=== PATIENT | male | born 1930 | race Caucasian/White ===

== ENCOUNTER → 2020-02-25 | Outpatient (CLI) | payer MEDICARE ==
[~2020-02-25] MED LIST: ALLO300T PO; HYDR12.58 PO; MECO10005 PO; MELO7.5T29 PO; METO-247 PO; MULT1TAB6 PO; SIMV80TA17 PO; VIT1CAPS12 PO
--- NOTE | 2020-02-25 10:21 | EKG ---
[facility] [address] [place] [address] Test Date: 2020-02-25 Test Time: 10:18:28 Pat Name: MIGUEL SANTOS Department: Room: Gender: M Business Consult: LUPIS Mistry : 1930 Requested By: GENESIS CONTRERAS Order Number: [id number] Reading MD: Denis Klein MD Measurements Intervals Amelia Rate: 65 P: 31 IL: 222 QRS: 9 QRSD: 96 T: 24 QT: 386 QTc: 406 Interpretive Statements SINUS RHYTHM 1st degree avb Electronically Signed On 03-01-2020 8:21:42 CHIEF NURSE EXECUTIVE by Denis Klein MD
--- NOTE | 2020-02-25 11:19 | RAD ---
EXAM: Chest, 2 views. HISTORY: Knee surgery. COMPARISON: None. FINDINGS: 2 views of the chest are obtained. There is elevation of the right hemidiaphragm. There is no infiltrate, pleural effusion or pneumothorax. The heart is normal in size. IMPRESSION: Elevation of the right diaphragm. Electronically signed by: Luly Connor MD (02/25/2020 11:17 AM) [id number]
== END ==
LOC: SURGPAT 09:18
PROVIDERS: ATTEND Orthopaedic Surgery
DX: Z01.818 Encounter for other preprocedural examination (principal); M17.11 Unilateral primary osteoarthritis, right knee
CPT/HCPCS: 71046; 93005

== ENCOUNTER → 2020-03-05 | Outpatient (CLI) | payer MEDICARE | LOC: LAB 09:49 | PROVIDERS: ATTEND Orthopaedic Surgery | DX: Z01.812 Encounter for preprocedural laboratory examination (principal); Z20.828 Contact with and (suspected) exposure to other viral communicable diseases | CPT/HCPCS: U0003 ==

== ENCOUNTER 2020-03-09 06:09 | Inpatient (IN) | payer MEDICARE ==
--- NOTE | 2020-03-07 13:05 | PDOC1 ---
History and Physical Date of Admission Date of Admission 03/09/2020 Identification/Chief Complaint Chief Complaint Right knee osteoarthritis pain and instability Source Source: Chart review, Patient History of Present Illness History of Present Illness 89-year-old man with right knee pain due to osteoarthritis, here for right knee arthroplasty. He lives alone in his own home ( in 2005) and drives his new Jeep [place]. Daughter lives in [place] with her who is retired and available to help. History of left total knee arthroplasty with Dr. Rogers in 2012. PMHX of degenerative lumbar spine disease for which he is wearing a brace. Of note, he is somewhat hard of hearing. Former smoker. 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 Denies any known metal or nickel allergy. Currently, he describes severe lateral right knee pain that will occasionally give out and make him fall. He is noticing his increased valgus deformity, and overall, is most concerned about his knee giving out and falling that prevents him from attending [employer]. He has been taking Meloxicam and has undergone several cortisone injections, which have lasted about a month. Meloxicam helps his back pain but doesn't address his knee f unction. He previously took NSAID's although his PCP took him off these due to kidney function. Patient doesn't want to use assistive devices. Past Medical History Cardiovascular: HTN, Hyperlipidemia Past Surgical History Past Surgical History: Total knee replacement Social History Smoke: No ALCOHOL: none Current Medications Current Medications Current Medications Ondansetron HCl (Zofran) 4 mg PRN Q6HRS PRN IV NAUSEA/VOMITING; Start 03/09/20 at 07:00; Stop 03/10/20 at 06:59 Fentanyl Citrate (Fentanyl 2ml Vial) 25 mcg PRN Q5MIN PRN IV MILD PAIN 1-3; Start 03/09/20 at 07:00; Stop 03/10/20 at 06:59 Fentanyl Citrate (Fentanyl 2ml Vial) 50 mcg PRN Q5MIN PRN IV MODERATE TO SEVERE PAIN; Start 03/09/20 at 07:00; Stop 03/10/20 at 06:59 Morphine Sulfate (Morphine Sulfate) 1 mg PRN Q10MIN PRN IV SEVERE PAIN 7-10; Start 03/09/20 at 07:00; Stop 03/10/20 at 06:59 Ringer's Solution 1,000 ml @ 30 mls/hr Q24H IV ; Start 03/09/20 at 07:00; Stop 03/09/20 at 18:59 Lidocaine HCl (Xylocaine-Mpf 1% 2ml Vial) 2 ml PRN 1X PRN ID PRIOR TO IV START; Start 03/09/20 at 07:00; Stop 03/10/20 at 06:59 Hydromorphone HCl (Dilaudid) 0.5 mg PRN Q10MIN PRN IV SEV PAIN, Second choice; Start 03/09/20 at 07:00; Stop 03/10/20 at 06:59 Prochlorperazine Edisylate (Compazine) 5 mg PACU PRN PRN IV NAUSEA, MRX1; Start 03/09/20 at 07:00; Stop 03/10/20 at 06:59 Active Scripts Active Reported Preservision Areds Softgel (Vit A/Vit C/Vit E/Zinc/Copper) 1 Each Capsule 1 Each PO DAILY Meloxicam 7.5 Mg Tablet 7.5 Mg PO DAILY Centrum Complete Multivit Tab (Multivitamin/Iron/Folic Acid) 1 Each Tablet 1 Each PO DAILY B12 Active (Mecobalamin) 1,000 Mcg Tab.chew 1,000 Mcg PO DAILY Hydrochlorothiazide Tablet (Hydrochlorothiazide) 12.5 Mg Tablet 25 Mg PO DAILY Allopurinol 300 Mg Tablet 300 Mg PO DAILY Metoprolol Succinate ( Xl ) (Metoprolol Succinate) 100 Mg Tab.er.24h 100 Mg PO DAILY Simvastatin 80 Mg Tablet 80 Mg PO HS Allergies Allergies: Coded Allergies: Sulfa (Sulfonamide Antibiotics) (Verified Allergy, Severe, RASH, 02/25/20) amoxicillin (Verified Allergy, Severe, PURITIS, 02/25/20) lisinopril (Verified Allergy, Severe, RASH, 02/25/20) Physical Exam General: Alert, Cooperative HEENT: Atraumatic Heart: RRR Abdomen: Soft Extremities: Other (The RIGHT knee shows a mildly antalgic gait. There is valgus alignment. No masses. No detectable effusion. Tenderness on the joint lines, more-so laterally. Range of motion is 2-115 degrees. There is crepitus with range of motion, and pain at the extremes of motion. The knee is stable to varus and valgus stress without subluxation or laxity. Muscle strength is slightly weak for the quadriceps 4+/5 which may be due to pain or avoidance, and does not seem neurogenic, and the muscle tone and bulk is slightly decreased. The hamstring strength is 5/5. The skin is normal with no scars, rashes, lesions or ulcers. Light touch sensation is intact. Minimal-mild edema and no varicosities. Dorsalis pedis pulse is intact and capillary refill is normal.) Skin: No breakdown, No significant lesion Neuro: Normal speech, Sensation intact Psych/Mental Status: Mental status NL, Mood NL Images Images PATIENT: MIGUEL SANTOS I ACCOUNT: [id number] : 1930 LOCATION: [facility] AGE: 89 SEX: M EXAM STATUS: PRE CLI ORD. PHYSICIAN: GENESIS CONTRERAS MD REASON: RT KNEE PAIN PROCEDURE: KNEE STANDING BILAT AP EXAM: Bilateral knees, standing view; right knee, 2 views. HISTORY: Pain. COMPARISON: None. FINDINGS: A frontal standing view both knees and lateral and sunrise views of the right knee are obtained. There is a left knee arthroplasty in expected position. There is severe lateral compartment joint space narrowing, subchondral sclerosis, subchondral cyst formation and spurring involving the right knee. There is associated lateral compartment bony remodeling and genu valgus. There is also mild patellofemoral compartment spurring. There is no joint effusion. There are vascular calcifications. IMPRESSION: 1. Severe lateral and mild medial compartment osteoarthritis of the right knee with associated lateral compartment bony remodeling and genu valgus. 2. Left knee arthroplasty in expected position. Electronically signed by: Luly Morrison MD (12/19/2019 9:18 AM) [id number] DICTATED and SIGNED BY: LULY MORRISON MD DATE: 12/19/19 0918 VTE Prophylaxis Ordered VTE Prophylaxis Devices: Yes VTE Pharmacological Prophylaxi: Yes Assessment/Plan Assessment/Plan He has severe osteoarthritis his right knee. We reviewed his x-rays together and discussed the natural history of the condition as well as the risks, benefits, and alternatives to treatment. Given his failure of nonoperative measures, instability, and marked valgus deformity, my recommendation is surgery. Plan for right total knee arthroplasty. We discussed the potential risks of infection, neurovascular injury, fracture, bleeding, blood clots, malalignment, need for revision surgery, or other potential surgical or anesthetic complications. Specifically, we discussed the risks associated with his older age and I highlighted that he's relatively healthy and I don't see any compelling reason to withhold from joint replacement. I recommended the robotic NAVIO instrumentation and we discussed my reasoning. We also discussed postoperative treatment and expectations including dental antibiotic prophylaxis and residual numbness over the knee. All of his questions were answered and he desires to proceed with total knee replacement. [facility] with robotic assist. Justifications for Admission Other Justification GENESIS CONTRERAS MD Mar 07, 2020 13:05
[~2020-03-09] VITALS: Ht 167.6 cm; Wt 89.8 kg
[2020-03-09] VITALS (10 sets, daily range): BP systolic 105–126; BP diastolic 67–79
[~2020-03-09 06:09] MED LIST changes: +CLINDAMYCIN 900MG PREMIX 50 ML IV PRN; +MORPHINE SULFATE 5 MG, KETOROLAC 30MG VIAL 30 MG, ROPIVacaine 0.5% PF 60 ML, EPINEPHrin... INT ART ONE; +TRANEXAMIC ACID 1,000 MG in IV NORMAL SALINE 50ML 50 ML INJ ONE
[2020-03-09] MEDS ORDERED: DEXAMETHASONE SOD PHOS 4 MG/ML VIAL ONE (06:39)
[2020-03-09] MEDS ORDERED: LIDOCAINE 2% PF 5 ML VIAL. ONE (06:39)
[2020-03-09] MEDS ORDERED: PROPOFOL 10 MG/ML (20ML) VIAL. IV ONE (06:39)
[2020-03-09] MEDS ORDERED: ONDANSETRON PF 4 MG/2 ML VIAL. ONE (06:39)
[2020-03-09] MEDS ORDERED: SEVOFLURANE > 120 MINUTES. IH ONE ×2 (06:39→08:17)
[2020-03-09] MEDS ORDERED: PHENYLEPHRINE in 0.9% NACL PF 1 MG/10 ML SYRINGE. IV ONE ×2 (06:40→09:06)
[2020-03-09] MEDS ORDERED: VANCOMYCIN 1 GM VIAL. ONE ×2 (06:51→07:22)
[2020-03-09] MEDS ORDERED: BUPIVACAINE MPF 0.25% 30 ML VIAL. ONE (06:51)
[2020-03-09] MEDS ORDERED: methylPREDNISolone ACETATE 80 MG/ML VIAL. ONE (06:52)
[2020-03-09] MEDS ORDERED: TOBRAMYCIN POWDER 1.2 GM VIAL. ONE (06:52)
[2020-03-09] MEDS ORDERED: IV RINGERS,LACTATED 1000ML 1,000 ML IV SCH (07:00)
[2020-03-09] MEDS ORDERED: fentaNYL PF VIAL 100 MCG/2 ML VIAL IV PRN ×2 (07:00)
[2020-03-09] MEDS ORDERED: ACETAMINOPHEN 500 MG TABLET PO ONE (07:00)
[2020-03-09] MEDS ORDERED: ONDANSETRON PF 4 MG/2 ML VIAL. IV PRN (07:00)
[2020-03-09] MEDS ORDERED: PROCHLORPERAZINE 10 MG/2 ML VIAL. IV PRN (07:00)
[2020-03-09] MEDS ORDERED: LIDOCAINE 1% PF 2 ML VIAL. ID PRN (07:00)
[2020-03-09] MEDS ORDERED: HYDROmorphone 2 MG/ML VIAL IV PRN (07:00)
[2020-03-09] MEDS ORDERED: fentaNYL PF VIAL 100 MCG/2 ML VIAL ONE ×2 (07:46→08:23)
[2020-03-09] MEDS ORDERED: TRANEXAMIC ACID 1,000 MG in IV NORMAL SALINE 50ML 50 ML INJ ONE (08:00)
--- NOTE | 2020-03-09 09:52 | PDOC4 ---
Operative Note Operative Note Date of Procedure: March 09, 2020 Pre-Op Diagnosis: Unilateral primary osteoarthritis, right knee. M17.11 Post-Op Diagnosis: same Procedure: right total knee arthroplasty with patella resurfacing, robotic assisted, CPT 78848 Surgeon: Genesis Medeiros MD Science Technicians: AAS Tobias Anesthesia: General EBL: 100 mL Specimens Obtained: right knee bone and soft tissue Complications: none Drains: Hemovac plus pain catheter Tourniquet time: 58 Minutes Tourniquet Pressure: 300 mm Hg Indications for Procedure: Knee arthritis pain, affecting quality of life, unrelieved by nonoperative management Findings: Severe osteoarthritis with bone on bone contact laterally, with full thickness cartilage loss medially and at the patellofemoral joint Implants: Booker & Nephew Journey II Total Knee System, Size 7 right bicruciate stabilized Journey II BCS cobalt chrome femoral component, size 6 right Journey nonporous tibial baseplate, size 5-6 13 mm right Journey II BCS XLPE articular insert, 32 mm oval Mia II resurfacing patellar component Procedure in Detail: The patient was identified in the preoperative holding area, and the correct right lower extremity was marked by me. The patient was taken to the operating room where the patient was anesthetized by the Department of Anesthesia. Preoperative antibiotics were given intravenously. Tranexamic acid 1 g was given intravenously for intraoperative hemostasis. A "time-out" procedure was performed. The patient was positioned supine on the operative table with a tourniquet on the upper right thigh. A right hip bump and heel bump were attached to the operating table for later intraoperative positioning. The right lower limb was thoroughly scrubbed, then sterile Chloraprep solution was applied, and the limb was draped in sterile fashion. The operating team wore exhaust ventilated hoods with [employer] Personal Protection Toga Zippered Peel-Away protection system. An impervious stockinet and an adhesive drape were used such that the skin was entirely covered. The limb was exsanguinated with an Esmarch bandage, and the tourniquet was inflated. A midline skin incision was made with a scalpel using the patella and tibial tubercle as landmarks. Electrocautery was used for hemostasis. My graduate research assistant used rake retractors and a laparotomy sponge. A medial parapatellar arthrotomy incision was used with extension into the distal quadriceps tendon. The patella was retracted laterally and Hohmann retractors were now used by my graduate research assistant. Excess synovium, the menisci, and the cruciate ligaments were resected sharply. A periarticular multimodal ropivacaine anesthetic injection was used in the suprapatellar pouch and distal quadriceps muscle. The patella was everted and exposed. The patella thickness was measured with a caliper, and then cut freehand with a saw, using caliper measurements to assess the resection. The lateral retinaculum was partially released from the lateral patella using electrocautery. Rongeurs were used to make sure there were no remaining exposed patellar osteophytes medially or laterally. The patella was sized, and then drilled for an oval three-peg patella component. The tibial tracker array for the NAVIO system was applied to the tibial crest four finger breadths below the tibial tubercle, using percutaneous incisions and bicortical pins. The femoral tracker array was applied outside of the original incision using two separate stab incisions using bicortical pins. Checkpoint verification pins were applied to the femur and tibia. Using the point probe, the medial and lateral malleoli were localized and the locations were stored. The center of the tibia was noted at the anterior cruciate ligament insertion and stored. The center of the femur was marked at the intersection of [place] line with the transepicondylar axis. The hip center calculation was performed with range of motion of the hip. The femur neutral position was identified, and simulated weightbearing was performed with axial compression on the foot. Range of motion without stress was performed and the data collected. Range of motion with valgus stress, and range of motion with varus stress data collection was also performed. Rotational references include the [place] line, and the trans-epicondylar axis. The femoral articular surface was now mapped in 3 dimensions using the point probe and digital data collected. The tibial condyle articular surfaces and cortical edges were mapped in 3 dimensions using the point probe including the medial and lateral tibial plateau. Implant planning was now performed on-screen with manipulation of the implant sizes, cut thicknesses and gaps, component rotation, component flexion/extension and component varus/valgus until satisfactory ligament balance, alignment and stability of the knee was expected throughout the range of motion. A lateral tibiofemoral release was performed with a piecrust technique using an 11 blade scalpel in the lateral soft tissues including the IT band. My graduate research assistant held a Hohmann retractor, a medial Z-retractor, and an [place] retractor to protect the medial and lateral collateral ligaments, the patellar tendon, the skin and the other soft tissues. The point probe was used to confirm the location of the checkpoint verification pins. The distal femoral surface was now prepared using the Anspach bisi with footpedal, and the NAVIO handpiece for bone removal to the previously planned distal femoral resection. The crosshairs at the pin locations were marked by using a mallet and the point probe for definitive location. A 5-in-1 Journey II cutting guide was then applied and the position was checked with the virtual snow wing from the NAVIO to ensure proper placement as the pins were applied. The posterior, anterior, and all chamfer cuts were made with the oscillating saw. Excess bone was removed with an osteotome and rongeurs. The tibial cutting guide was applied, positioned using the NAVIO virtual snow wing, and secured to the upper tibia using three pins at the previously planned location. The virtual snow wing was used to confirm the resection depth, slope and coronal alignment. The upper tibia was cut made with an oscillating saw. My graduate research assistant held Hohmann retractors and a posterior cruciate ligament retractor to protect the medial and lateral collateral ligaments, the patellar tendon, the skin, the peroneal nerve and the other soft tissues. The upper tibia was sized with a trial baseplate. The posterior compartment was cleared of osteophytes and loose bodies. The periarticular anesthetic injection was used in the posterior compartment. The box cut for a posterior stabilized component was made. A preliminary reduction was performed with a trial femur, trial tibial baseplate and trial polyethylene. The NAVIO system was used to confirm range of motion, and postoperative stressed gap assessment. The stability was assessed using different thicknesses of tibial articular surface to find satisfactory stability and good range of motion. The rotation of the tibial component was marked on the upper tibia. Final trial reduction was now performed verifying patella tracking and tibiofemoral stability and alignment. The bone pins and tracker arrays were removed, and the checkpoint verification pins were removed. The tibia preparation was completed with a drill, saw, and fin punch at the previously noted rotation. The final implants were verified and opened. Outer gloves were changed by the operating team. Betadine lavage was used. The bone cuts were irrigated with saline using the Judith InterPulse device and then dried with suction and laparotomy sponges. Two packages of Booker + Nephew Rally HV bone cement were mixed in powdered form with Vancomycin 1gm and Tobramycin 1.2 gm, and then vacuum-mixed with the monomer, and placed into a cement gun. The cut surfaces of the bone were thoroughly dried with suction and with laparotomy sponges for cement interdigitation. The final components were cemented into place. The knee was kept at full extension while the cement hardened, and excess cement was removed. Tranexamic acid 1 g was redosed intravenously for additional intraoperative hemostasis. The tourniquet was released, and electrocautery was used for hemostasis. A final periarticular anesthetic injection was used for pain relief. The bone pin sites on the tibial crest were closed with #3-0 Nylon sutures. A final check of [id number] and stability was made, and the polyethylene implant final size was chosen. The polyethylene implant was secured to the tibial baseplate, and the knee was reduced a final time and range of motion and stability was confirmed. Thorough irrigation was used. A pain catheter, and a 10 Fr Hemovac were inserted. Topical Vancomycin 1 gm was used during the closure. The arthrotomy was closed with interrupted [id number] #1 Vicryl suture. The subcutaneous tissues were approximated initially with #2-0 Vicryl inverted interrupted sutures by my graduate research assistant. Next the subcuticular layer was ap proximated in a running fashion with #3-0 STRATAFIX suture by my graduate research assistant. The skin incision was then covered and reinforced by my graduate research assistant with Acticoat, followed by a ANANDA single use negative pressure wound therapy dressing Soft roll and an Robert wrap were applied. Needle and sponge counts were correct. There were no apparent complications. The patient returned to the recovery room in stable condition. GENESIS MEDEIROS MD Mar 09, 2020 09:52
[2020-03-09] MEDS ORDERED: ZOLPIDEM 5 MG TABLET. PO PRN (10:00)
[2020-03-09] MEDS ORDERED: DEXTROSE 50% 25 GM / 50ML DISP.SYRIN. IV PRN (10:00)
[2020-03-09] MEDS ORDERED: 0.9 % SODIUM CHLORIDE 10 ML DISP.SYRIN. IV PRN (10:00)
[2020-03-09] MEDS ORDERED: fentaNYL PF VIAL 100 MCG/2 ML VIAL IVP PRN (10:00)
[2020-03-09] MEDS ORDERED: METOCLOPRAMIDE HCL 10 MG/2 ML VIAL. IVP PRN (10:00)
[2020-03-09] MEDS ORDERED: diphenhydrAMINE 50 MG/ML VIAL IVP PRN (10:00)
[2020-03-09] MEDS ORDERED: MORPHINE SULFATE 2 MG/ML VIAL. IVP PRN (10:00)
[2020-03-09] MEDS ORDERED: PROCHLORPERAZINE 5 MG TABLET. PO PRN (10:00)
[2020-03-09] MEDS: IV NORMAL SALINE 1000ML BAG 1,000 ML IV SCH ×2 (10:00→13:08)
[2020-03-09] MEDS: MORPHINE SULFATE 2 MG/ML VIAL. IV PRN ×2 (10:19→10:34)
[2020-03-09] MEDS ORDERED: oxyCODONE/APAP 5/325 1 TAB TABLET PO PRN (10:45)
--- NOTE | 2020-03-09 10:59 | RAD ---
EXAM: Right knee, 2 views. HISTORY: Arthroplasty. COMPARISON: None. FINDINGS: 2 views of the right knee are obtained. There is a right knee arthroplasty in expected posi tion. There is gas, joint fluid and a drain due to recent surgery. There are track torres within the d istal femur and proximal tibia due to prior instrumentation. IMPRESSION: Right knee arthroplasty in expected position. Electronically signed by: Luly Connor MD (03/09/2020 10:56 AM) [id number]
--- NOTE | 2020-03-09 11:30 | NUR ---
received from recovery. He is alert and oriented x4. He is QUINAULT and wears bilateral hearing aides and glasses. He is rating his pain around a "2". He states that it is a dull ache. He has good motion, sensation and pulses carmelo lower extremities. He has swelling 2 + in his bilateral ankles.
[2020-03-09] MEDS: ONDANSETRON PF 4 MG/2 ML VIAL. IVP SCH ×2 (12:00→18:00)
[2020-03-09] MEDS: METOPROLOL SUCC 24HR ER 100 MG TAB.ER.24H. PO SCH (12:00)
[2020-03-09] MEDS: hydroCHLOROthiazide 25 MG TABLET PO SCH (12:00)
[2020-03-09] MEDS: ALLOPURINOL 300 MG TABLET. PO SCH (12:00)
[2020-03-09] MEDS: CLINDAMYCIN 900MG PREMIX 50 ML IV SCH ×2 (13:08→18:25)
[2020-03-09] MEDS: CYANOCOBALAMIN (VITAMIN B-12) 1,000 MCG TABLET. PO SCH (13:13)
[2020-03-09] MEDS: ONDANSETRON ODT 4 MG TAB.RAPDIS. PO SCH ×2 (13:13→17:04)
[2020-03-09] MEDS: SENNOSIDES/DOCUSATE 8.6/50MG TABLET. PO SCH (13:13)
[2020-03-09] MEDS: oxyCODONE/APAP 5/325 1 TAB TABLET PO PRN (17:03)
[2020-03-09] MEDS: KETOROLAC 30MG VIAL 30 MG, BUPIVACAINE MPF 0.25% 20 ML, EPINEPHrine 0.5 MG in TOTAL VOL... INT ART SCH (18:24)
[2020-03-09] MEDS: ASPIRIN ENTERIC COATED 325 MG TABLET.DR. PO SCH (20:38)
[2020-03-09] MEDS: SIMVASTATIN 40 MG TABLET. PO SCH (20:38)
--- NOTE | 2020-03-09 22:11 | NUR ---
Patient accidently pulled out Hemovac drain. Dressing CDI, no bleeding noted. tubing intact. Paiten denies any pain or discomfort. Offered Patient pain pill and Patient refused. Patient assisted to restroom and voiding without difficulty. Offered to assist Patient to bed and Patient requested to sleep in chair. Call light in reach. Will monitor.
[2020-03-10] MEDS: CLINDAMYCIN 900MG PREMIX 50 ML IV SCH (01:12)
--- NOTE | 2020-03-10 01:15 | NUR ---
Patient assisted to restroom. Patient offered pain medication and refused. Instructed Patient on need to not let pain get out of control, encouraged him to take pain medication before pain gets bad. Patient verbalized understanding and stated "I won't." Will monitor and continue to offer pain medication. Call light in reach.
[2020-03-10] MEDS: oxyCODONE/APAP 5/325 1 TAB TABLET PO PRN ×4 (02:48→19:56)
[2020-03-10 03:00] VITALS: BP 91/53
[2020-03-10] MEDS ORDERED: MAGNESIUM HYDROXIDE 2,400 MG/30 ML ORAL.SUSP. PO PRN (06:00)
[2020-03-10] MEDS: KETOROLAC 30MG VIAL 30 MG, BUPIVACAINE MPF 0.25% 20 ML, EPINEPHrine 0.5 MG in TOTAL VOL... INT ART SCH (06:03)
[2020-03-10] MEDS: ONDANSETRON ODT 4 MG TAB.RAPDIS. PO SCH ×2 (06:08)
[2020-03-10] MEDS: ONDANSETRON PF 4 MG/2 ML VIAL. IVP SCH ×2 (06:08)
[2020-03-10 06:12] VITALS: BP 105/65
--- NOTE | 2020-03-10 06:24 | NUR ---
Unable to start IAC infusion as when assessing IA cap broke off and found in chair, no bleeding noted. Attempted to remove tubing and meet with resistance. Tubing tied in know and with have Tammy SANTAMARIA assist with removal of IAC at shift change report. Patient denies any C/O of pain.
--- NOTE | 2020-03-10 07:15 | NUR ---
Patient's IAC discontinued with assistance of Tammy SANTAMARIA. Opsite around Lelia removed, IAC discontinued, area cleansed with Chlor prep. Tolleson foam applied and IAC opsite replaced.
[2020-03-10] MEDS: ASPIRIN ENTERIC COATED 325 MG TABLET.DR. PO SCH ×2 (08:13→19:55)
[2020-03-10] MEDS: SENNOSIDES/DOCUSATE 8.6/50MG TABLET. PO SCH (08:13)
[2020-03-10] MEDS: MULTIVITAMIN with MINERAL TABLET. PO SCH (08:14)
[2020-03-10] MEDS: MELOXICAM 7.5 MG TABLET PO SCH (08:14)
[2020-03-10] MEDS: ALLOPURINOL 300 MG TABLET. PO SCH (08:14)
[2020-03-10] MEDS: CYANOCOBALAMIN (VITAMIN B-12) 1,000 MCG TABLET. PO SCH (08:16)
[2020-03-10] MEDS: METOPROLOL SUCC 24HR ER 100 MG TAB.ER.24H. PO SCH (09:00)
[2020-03-10] MEDS: hydroCHLOROthiazide 25 MG TABLET PO SCH (09:00)
--- NOTE | 2020-03-10 09:00 | NUR ---
Held this am blood pressure medication: metoprolol and hctz. BP 85/50 with heart rate 82. Encouraged pt to increase po fluids. Also encourage pt when getting up to do it slowly. Pt stated at one time at home, got up from the couch to quickly he passed out. Cont. monitor.
[2020-03-10 11:13] VITALS: BP 96/56
[2020-03-10] MEDS ORDERED: ONDANSETRON ODT 4 MG TAB.RAPDIS. PO PRN (12:00)
[2020-03-10] MEDS ORDERED: ONDANSETRON PF 4 MG/2 ML VIAL. IVP PRN (12:00)
--- NOTE | 2020-03-10 12:44 | PDOC ---
PROGRESS NOTES Date of Service DATE: 03/10/20 TIME: 12:40 Subjective Subjective Received po pain meds to control pain. Unfortunately the drain came out early overnight and now he has ecchymosis. Pain cath leaked... Hypotensive and BP meds held. Objective Vital Signs Vital Signs Date Time Temp Pulse Resp B/P (MAP) Pulse Ox O2 Delivery O2 Flow Rate FiO2 03/10/20 11:07 Room Air 03/10/20 06:12 97.8 81 18 105/65 (78) 95 97.8 03/09/20 22:42 2.0 Physical Exam ANANDA intact and dry. Pain catheter and Hemovac have been removed. Calf soft and NT. Good AROM of foot and toes. Intact sensation distally. No sign of compartment syndrome or DVT. No blisters, but extensive ecchymosis laterally corresponds with extensive lateral releases for valgus knee. Imaging Report reviewed, images independently reviewed. Satisfactory TKA without apparent complications. PATIENT: MIGUEL SANTOS I ACCOUNT: [id number] : 1930 LOCATION: [address] [place] [address] AGE: 89 SEX: M EXAM STATUS: ADM IN ORD. PHYSICIAN: GENESIS CONTRERAS MD REASON: PACU - POST OP PROCEDURE: KNEE RIGHT 2V EXAM: Right knee, 2 views. HISTORY: Arthroplasty. COMPARISON: None. FINDINGS: 2 views of the right knee are obtained. There is a right knee arthroplasty in expected position. There is gas, joint fluid and a drain due to recent surgery. There are track torres within the distal femur and proximal tibia due to prior instrumentation. IMPRESSION: Right knee arthroplasty in expected position. Electronically signed by: Luly Morrison MD (03/09/2020 10:56 AM) [id number] DICTATED and SIGNED BY: LULY MORRISON MD DATE: 03/09/20 [id number] 0 Assessment Assessment POD# 1 after TKA. Hypotension and BP meds held. Plan Plan of Care Continue PT. Not yet able to get out of bed without assistance. Need to watch incision for blisters. Watch BP and hopefully can restart metoprolol. Justicifation of Admission Dx: Justifications for Admission: Justification of Admission Dx: Yes Hypertension: Unstable Variant GENESIS CONTRERAS MD Mar 10, 2020 12:44
--- NOTE | 2020-03-10 13:00 | NUR ---
Noted on right lateral knee a large dark bruise where the drain site was and some swelling. Encourage pt to keep it elevated while at rest and iced. Dr. Medeiros aware of this. Cont. monitor.
[2020-03-10] MEDS: CALCIUM CARBONATE 500 MG TAB.CHEW PO PRN (13:06)
[2020-03-10] MEDS ORDERED: BISACODYL 10 MG SUPP.RECT. PR PRN (16:00)
[2020-03-10 18:09] VITALS: BP 112/69
[2020-03-10] MEDS: SIMVASTATIN 40 MG TABLET. PO SCH (19:55)
[2020-03-11] VITALS (7 sets, daily range): BP systolic 92–154; BP diastolic 52–87
--- NOTE | 2020-03-11 05:43 | NUR ---
Patient continues to rest in recliner, still needing moderate assistance at times to get out of recliner. Right leg elevated and ice applied for swelling. Patient seems to be painful upon ambulation,but refusing pain medication throughout night with exception of pain pill with HS medication. Call light remains in reach.
[2020-03-11] MEDS: oxyCODONE/APAP 5/325 1 TAB TABLET PO PRN ×2 (06:19→21:20)
[2020-03-11] MEDS: ASPIRIN ENTERIC COATED 325 MG TABLET.DR. PO SCH ×2 (07:53→21:17)
[2020-03-11] MEDS: MELOXICAM 7.5 MG TABLET PO SCH (07:53)
[2020-03-11] MEDS: CYANOCOBALAMIN (VITAMIN B-12) 1,000 MCG TABLET. PO SCH (07:53)
[2020-03-11] MEDS: SENNOSIDES/DOCUSATE 8.6/50MG TABLET. PO SCH (07:53)
[2020-03-11] MEDS: MULTIVITAMIN with MINERAL TABLET. PO SCH (07:53)
[2020-03-11] MEDS: METOPROLOL SUCC 24HR ER 100 MG TAB.ER.24H. PO SCH ×2 (07:57→11:25)
[2020-03-11 08:49] LABS: HEMATOCRIT 32.9 % (39.0-53.0); HEMOGLOBIN 10.8 g/dL (13.0-17.5)
[2020-03-11] MEDS: hydroCHLOROthiazide 25 MG TABLET PO SCH (09:00)
--- NOTE | 2020-03-11 09:02 | NUR ---
resting quietly in recliner. continues to complain of "hurting" right leg/knee is swollen-3+ ; has good pedal pulse and warm to touch. continue to hold Toprol xL will cont to reassess.
[2020-03-11] MEDS: CALCIUM CARBONATE 500 MG TAB.CHEW PO PRN (09:34)
[2020-03-11] MEDS: ALLOPURINOL 300 MG TABLET. PO SCH (09:34)
--- NOTE | 2020-03-11 12:00 | NUR ---
rests in recliner. continues to complain of feeling tired. blood pressure is up and hr is 130's. medicated with toprol xl . continues to refused pain medication att his time. complains of heart burn ; medicated with tums
--- NOTE | 2020-03-11 14:50 | NUR ---
returned from therapy. became light headed returned per recliner. rests in recliner. daughter at bedside. Addendum: 03/11/20 at 1453 by ISAI LAUREN RN blood pressure is 120/50 hr 119
--- NOTE | 2020-03-11 16:06 | NUR ---
continues to be nauseated/heartburn. was given prune juice then immediately has large amount of emesis approx 400cc. then had another episode of approx 200cc brown/black liquid. states heartburn is better. becomes soa and applied 02 on at 2lnc heart rate has been in the 120's. He was given his toprol xl today. iv fluids restarted to left hand with NS at 100 cchr. continue to monitor
--- NOTE | 2020-03-11 17:41 | EKG ---
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: : 1930 Requested By: SRAVANTHI GERARD Order Number: [id number] Reading MD: Measurements Intervals [place] Rate: 128 P: -39 [place]: 116 QRS: 173 QRSD: 86 T: 131 QT: 342 QTc: 503 Interpretive Statements SUPRAVENTRICULAR RHYTHM ABNORMAL RIGHT AXIS DEVIATION CONSIDER RIGHT VENTRICULAR HYPERTROPHY QRS(T) CONTOUR ABNORMALITY CONSISTENT WITH HIGH LATERAL INFARCT AGE UNDETERMINED CONSISTENT WITH INFERIOR INFARCT PROBABLY OLD ABNORMAL ECG RI6.02 Compared to ECG 02/25/2020 10:18:28 Supraventricular rhythm now present Right-axis deviation now present Myocardial infarct finding now present Sinus rhythm no longer present
--- NOTE | 2020-03-11 18:01 | PDOC ---
PROGRESS NOTES Date of Service DATE: 03/11/20 TIME: 17:48 Subjective Subjective Total knee arthroplasty was 2 days ago, on 03/09. He did well yesterday. He has not felt very well all day, but could not be more specific. He had not had a bowel movement since Monday and his symptoms were thought perhaps due to co nstipation. Took some prune juice. Then he threw up twice, 500 cc, then 200 cc. Then he did report some chest discomfort and an EKG was ordered. He is feeling slightly better now after throwing up, and denies shortness of breath. He does not have a employment attorney. He sees Dr. Faina Anders. He is on metoprolol routinely, although this was held yesterday due to low blood pressure postoperatively. I reviewed the EKG that was just done and compared to the preop EKG from 02/25/20. On 02/24 he had a first-degree AV block only conducting every other P wave with heart rate 66, but now he is conducting every P wave showing supraventricular tachycardia with heart rate 128 bpm. QRS looks different especially in leads I, III, but maybe that is lead placement. I will consult cardiology. Objective Vital Signs Vital Signs Date Time Temp Pulse Resp B/P (MAP) Pulse Ox O2 Delivery O2 Flow Rate FiO2 03/11/20 16:30 99.5 127 20 114/73 (87) 95 Nasal Cannula 2.0 99.5 Physical Exam He looks well. He still has bruising on the lateral knee but no blisters. Calf is soft and nontender. No sign of DVT. Labs Laboratory Tests Test 03/11/20 08:34 Hemoglobin 10.8 g/dL (13.0-17.5) Hematocrit 32.9 % (39.0-53.0) Mean Corpuscular Hemoglobin Concent 33 g/dL (31-37) Laboratory Tests Test 03/11/20 08:34 Hemoglobin 10.8 g/dL (13.0-17.5) Hematocrit 32.9 % (39.0-53.0) Mean Corpuscular Hemoglobin Concent 33 g/dL (31-37) Assessment Assessment POD# 2 after total knee arthroplasty. Supraventricular tachycardia. Emesis, nausea and vomiting, now on IV fluids. Constipation might be a part of his symptom complex. He did miss 1 or more doses of metoprolol due to hypotension and this might be contributing to the tachycardia. Plan Plan of Care I will have cardiology evaluate to see if he needs enzymes ordered or other work-up. Continue taking metoprolol now, and use IV fluids for blood pressure, and to keep him hydrated after emesis. Labs in am to include BMP and hemoglobin (or can get those sooner if cardiology wants to check other blood work.) Justicifation of Admission Dx: Justifications for Admission: Justification of Admission Dx: Yes Hypertension: Unstable Variant GENESIS CONTRERAS MD Mar 11, 2020 18:01
[2020-03-11] MEDS: IV NORMAL SALINE 1000ML BAG 1,000 ML IV SCH (19:15)
[2020-03-11] MEDS: SIMVASTATIN 40 MG TABLET. PO SCH (21:17)
[2020-03-12] MEDS: IV NORMAL SALINE 1000ML BAG 1,000 ML IV SCH (01:54)
[2020-03-12 03:00] VITALS: BP 101/60
[2020-03-12 06:00] VITALS: BP 124/67
[2020-03-12 08:17] LABS: CALCIUM 8.2 mg/dL (8.5-10.1); CREATININE 1.2 mg/dL (0.7-1.3); GFR 57.1; POTASSIUM 3.9 mmol/L (3.5-5.1)
[2020-03-12] MEDS: MELOXICAM 7.5 MG TABLET PO SCH (08:19)
[2020-03-12] MEDS: CYANOCOBALAMIN (VITAMIN B-12) 1,000 MCG TABLET. PO SCH (08:19)
[2020-03-12] MEDS: ALLOPURINOL 300 MG TABLET. PO SCH (08:19)
[2020-03-12] MEDS: MULTIVITAMIN with MINERAL TABLET. PO SCH (08:20)
[2020-03-12] MEDS: SENNOSIDES/DOCUSATE 8.6/50MG TABLET. PO SCH (08:20)
[2020-03-12] MEDS: ASPIRIN ENTERIC COATED 325 MG TABLET.DR. PO SCH (08:20)
[2020-03-12] MEDS: hydroCHLOROthiazide 25 MG TABLET PO SCH (09:00)
--- NOTE | 2020-03-12 09:00 | NUR ---
Feeling much better this morning. No c/o at this time. Cont. monitor.
[2020-03-12 09:11] LABS: HEMATOCRIT 29.7 % (39.0-53.0); HEMOGLOBIN 9.7 g/dL (13.0-17.5); RED BLOOD COUNT 3.08 x10^6/uL (4.30-5.70); RED CELL DISTRIBUTION WIDTH 13.8 % (11.5-14.5); WHITE BLOOD COUNT 9.7 x10^3/uL (4.0-11.0)
--- NOTE | 2020-03-12 09:26 | EKG ---
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
--- NOTE | 2020-03-12 10:18 | PDOC2 ---
TIGRE TURNER [employer] FOUNDER AND CHAIRMAN 03/12/20 1018: CARDIAC CONSULT DATE OF CONSULT Date of Consult DATE: 03/12/20 TIME: 10:08 REASON FOR CONSULT Reason for Consult: SVT, new onset, post op TKA REFERRING PHYSICIAN Referring Physician: Mala SOURCE Source: Chart review, Patient HISTORY OF PRESENT ILLNESS HISTORY OF PRESENT ILLNESS This is a pleasant 89 yo male admitted for planned RTKA. He is retired and lives alone but independent. He had his surgery 3 days ago and did well but was noted with possible SVT. He is currently not on labor economist but I did review his EKG and appears to be sinus tachycardia. This has to be repeated again due to limb lead reversal. His EKG is SR without any acute changes.Per V/S overnight there has not been any documented tachycardia. He does take metoprolol at home. Denies any hx of CAD, VTE, CVA or any arrhythmias. At home no cardiac symptoms and no frequent dizziness. Denies any chest pain, SOA, palpitations. He is tolerating post op rehab. The last time he had a stress test was 2005. PAST MEDICAL HISTORY Cardiovascular: HTN, Hyperlipidemia Pulmonary: No pertinent hx Heme/Onc: Anemia NOS Musculoskeletal: Osteoarthritis Rheumatologic: Gout ENT: Other (PRAIRIE BAND, cataract) PAST SURGICAL HISTORY Past Surgical History: Cataract Removal, Hernia Repair (ventral and right inguinal), Total knee replacement (left) SOCIAL HISTORY Smoke: Quit CURRENT MEDICATIONS CURRENT MEDICATIONS Current Medications Medications (Trade) Dose Ordered Sig/Jasen Route PRN Reason Start Time Stop Time Status Last Admin Dose Admin Sodium Chloride 1,000 ml @ 100 mls/hr Q10H IV 03/11/20 19:15 03/12/20 01:54 ALLERGIES ALLERGIES: Coded Allergies: Sulfa (Sulfonamide Antibiotics) (Verified Allergy, Severe, RASH, 03/09/20) amoxicillin (Verified Allergy, Severe, PURITIS, 03/09/20) lisinopril (Verified Allergy, Severe, RASH, 03/09/20) ROS Review of System 14 point ROS evaluated with pertinent positives noted per HPI PHYSICAL EXAM General: Alert, Oriented X3, Cooperative, No acute distress HEENT: Atraumatic, Mucous membr. moist/pink Lungs: Clear to auscultation, Normal air movement Heart: Regular rate (SR), Normal S1, Normal S2, No murmurs Abdomen: Soft, No tenderness Extremities: No cyanosis, Other (1+ bilateral LE pitting edema) Skin: No breakdown, Other (right knee surgical incision) Neuro: Normal speech, Sensation intact Psych/Mental Status: Mental status NL, Mood NL MUSCULOSKELETAL: Osteoarthritic changes both hands VITALS/I&O VITALS/I&O: Vital Signs Date Time Temp Pulse Resp B/P (MAP) Pulse Ox O2 Delivery O2 Flow Rate FiO2 03/12/20 06:00 98.0 78 18 124/67 (86) 95 Nasal Cannula 2.0 98.0 I & O 03/11/20 03/11/20 03/12/20 15:00 23:00 07:00 Intake Total 640 ml 280 ml 1000 ml Output Total 600 ml Balance 640 ml -320 ml 1000 ml LABS Lab: Laboratory Tests Test 03/12/20 07:15 White Blood Count 9.7 x10^3/uL (4.0-11.0) Red Blood Count 3.08 x10^6/uL (4.30-5.70) L Hemoglobin 9.7 g/dL (13.0-17.5) L Hematocrit 29.7 % (39.0-53.0) L Mean Corpuscular Volume 96 fL (79-100) Mean Corpuscular Hemoglobin 32 pg (25-35) Mean Corpuscular Hemoglobin Concent 33 g/dL (31-37) Red Cell Distribution Width 13.8 % (11.5-14.5) Platelet Count 221 x10^3/uL (140-400) Sodium Level 135 mmol/L (136-145) L Potassium Level 3.9 mmol/L (3.5-5.1) Chloride Level 101 mmol/L (98-107) Carbon Dioxide Level 28 mmol/L (21-32) Anion Gap 6 (6-14) Blood Urea Nitrogen 23 mg/dL (8-26) Creatinine 1.2 mg/dL (0.7-1.3) Estimated GFR (Cockcroft-Gault) 57.1 Glucose Level 94 mg/dL (70-99) Calcium Level 8.2 mg/dL (8.5-10.1) L Magnesium Level 2.2 mg/dL (1.8-2.4) Laboratory Tests 03/12/20 07:15 Laboratory Tests 03/12/20 07:15 ASSESSMENT/PLAN ASSESSMENT/PLAN 1. S/P RTKA: POD#3 2. Arrhythmia: possible PSVT. This is more reactive sinus tachycarida 3. Postoperative anemia 4. HTN: controlled 5. HLP Recommendations. Resume home toprol, may decrease dosing if BP is low Hold home HCTZ DC zocor, 80 mg is no longer recommended. Will check lipids and change to lipitor 40 mg daily Check CBC and BMP and TSH Discussed with rehab and pt was noted with HR in the 130s yesterday but no symptoms and no tele monitor. EKG was done and his EKG shows sinus tachycardia reactive due to low volume. His HR has been much better after IVF. Will obtain baseline TTE today. If unremarkable then may DC from cardiac standpoint. AYSE REYNOLDS MD 03/12/202004: CARDIAC CONSULT ASSESSMENT/PLAN ASSESSMENT/PLAN Patient seen and examined. Agree with MACHINE FILLER SERVICER's assessment and plan. Sinus tachycardia physiologic 2D echo showed normal LVF Continue post op care per ortho team OK for DC from standpoint Thank you for your consultation TIGRE TURNER APRN Mar 12, 2020 10:18 AYSE REYNOLDS MD Mar 12, 2020 20:05
[2020-03-12 11:04] VITALS: BP 113/60
[2020-03-12] MEDS ORDERED: ATOR40TA59 PO (11:14)
--- NOTE | 2020-03-12 13:01 | PDOC ---
PROGRESS NOTES Date of Service DATE: 03/12/20 TIME: 12:59 Subjective Subjective Feeling better. Cardiology input much appreciated. Objective Vital Signs Vital Signs Date Time Temp Pulse Resp B/P (MAP) Pulse Ox O2 Delivery O2 Flow Rate FiO2 03/12/20 11:04 98.4 85 18 113/60 (77) 97 Room Air 98.4 03/12/20 06:00 2.0 Physical Exam ANANDA intact with spotty drainage only. Labs Laboratory Tests Test 03/11/20 08:34 03/12/20 07:15 Hemoglobin 10.8 g/dL (13.0-17.5) 9.7 g/dL (13.0-17.5) Hematocrit 32.9 % (39.0-53.0) 29.7 % (39.0-53.0) Mean Corpuscular Hemoglobin Concent 33 g/dL (31-37) 33 g/dL (31-37) White Blood Count 9.7 x10^3/uL (4.0-11.0) Red Blood Count 3.08 x10^6/uL (4.30-5.70) Mean Corpuscular Volume 96 fL (79-100) Mean Corpuscular Hemoglobin 32 pg (25-35) Red Cell Distribution Width 13.8 % (11.5-14.5) Platelet Count 221 x10^3/uL (140-400) Sodium Level 135 mmol/L (136-145) Potassium Level 3.9 mmol/L (3.5-5.1) Chloride Level 101 mmol/L (98-107) Carbon Dioxide Level 28 mmol/L (21-32) Anion Gap 6 (6-14) Blood Urea Nitrogen 23 mg/dL (8-26) Creatinine 1.2 mg/dL (0.7-1.3) Estimated GFR (Cockcroft-Gault) 57.1 Glucose Level 94 mg/dL (70-99) Calcium Level 8.2 mg/dL (8.5-10.1) Magnesium Level 2.2 mg/dL (1.8-2.4) Triglycerides Level 52 mg/dL (0-150) Cholesterol Level 115 mg/dL (0-200) LDL Cholesterol, Calculated 47 mg/dL (0-100) VLDL Cholesterol, Calculated 10 mg/dL (0-40) Non-HDL Cholesterol Calculated 57 mg/dL (0-129) HDL Cholesterol 58 mg/dL (40-60) Cholesterol/HDL Ratio 2.0 Thyroid Stimulating Hormone (TSH) 1.280 uIU/mL (0.358-3.74) Laboratory Tests Test 03/12/20 07:15 White Blood Count 9.7 x10^3/uL (4.0-11.0) Red Blood Count 3.08 x10^6/uL (4.30-5.70) Hemoglobin 9.7 g/dL (13.0-17.5) Hematocrit 29.7 % (39.0-53.0) Mean Corpuscular Volume 96 fL (79-100) Mean Corpuscular Hemoglobin 32 pg (25-35) Mean Corpuscular Hemoglobin Concent 33 g/dL (31-37) Red Cell Distribution Width 13.8 % (11.5-14.5) Platelet Count 221 x10^3/uL (140-400) Sodium Level 135 mmol/L (136-145) Potassium Level 3.9 mmol/L (3.5-5.1) Chloride Level 101 mmol/L (98-107) Carbon Dioxide Level 28 mmol/L (21-32) Anion Gap 6 (6-14) Blood Urea Nitrogen 23 mg/dL (8-26) Creatinine 1.2 mg/dL (0.7-1.3) Estimated GFR (Cockcroft-Gault) 57.1 Glucose Level 94 mg/dL (70-99) Calcium Level 8.2 mg/dL (8.5-10.1) Magnesium Level 2.2 mg/dL (1.8-2.4) Triglycerides Level 52 mg/dL (0-150) Cholesterol Level 115 mg/dL (0-200) LDL Cholesterol, Calculated 47 mg/dL (0-100) VLDL Cholesterol, Calculated 10 mg/dL (0-40) Non-HDL Cholesterol Calculated 57 mg/dL (0-129) HDL Cholesterol 58 mg/dL (40-60) Cholesterol/HDL Ratio 2.0 Thyroid Stimulating Hormone (TSH) 1.280 uIU/mL (0.358-3.74) Assessment Assessment POD# 3 after TKA Plan Plan of Care Echo planned later today. Possibly can go home today if echo is ok. Salty chips for his mild hyponatremia. Justicifation of Admission Dx: Justifications for Admission: Justification of Admission Dx: Yes Hypertension: Unstable Variant GENESIS CONTRERAS MD Mar 12, 2020 13:01
[2020-03-12 15:02] VITALS: BP 119/72
[2020-03-12] MEDS: oxyCODONE/APAP 5/325 1 TAB TABLET PO PRN (15:37)
--- NOTE | 2020-03-12 16:00 | NUR ---
Ordered bag of Lays potato chips for the patient to eat. Suggested by Dr. Medeiros.
--- NOTE | 2020-03-12 16:44 | CARD ---
MR#: [id number] Date of Study: 03/12/2020 Ordering Physician: TIGRE TURNER, Referring Physician: TIGRE TURNER Tech: Stephania Mueller [facility] APPROVED REPORT EXAM: Two-dimensional and M-mode echocardiogram with Doppler and color Doppler. Other Information Quality : AverageHR: 100bpm Rhythm : Tachycardia INDICATION Arrhythmia 2D DIMENSIONS RVDd3.7 (2.9-3.5cm)Left Atrium(2D)4.2 (1.6-4.0cm) IVSd1.4 (0.7-1.1cm)Aortic Root(2D)3.8 (2.0-3.7cm) LVDd3.8 (3.9-5.9cm)LVOT Diameter2.3 (1.8-2.4cm) PWd1.3 (0.7-1.1cm)LVDs3.2 (2.5-4.0cm) FS (%) 15.6 %SV20.4 ml LVEF(%)33.6 (>50%) Aortic Valve AoV Peak Harlan.171.0cm/sAoV VTI28.5cm AO Peak GR.11.7mmHgLVOT Peak Harlan.118.5cm/s AO Mean GR.5mmHgAVA (VMAX)2.76cm2 Pulmonary Valve PV Peak Yfdhrkrj703.4cm/s Tricuspid Valve TR P. Owedptnm216gi/sTR Peak Gr.37mmHg LEFT VENTRICLE The left ventricle is normal size. There is mild concentric left ventricular hypertrophy. The left ve ntricular systolic function is normal. Estimated ejection fraction 55-60%. There is normal LV segmen aditya wall motion. Tissue Doppler imaging reveals mild left ventricular diastolic dysfunction. RIGHT VENTRICLE The right ventricle is normal size. There is normal right ventricular wall thickness. The right ventr icular systolic function is normal. ATRIA The left atrium size is normal. The right atrium size is normal. The interatrial septum is intact wit h no evidence for an atrial septal defect or patent foramen ovale as noted on 2-D or Doppler imaging. AORTIC VALVE The aortic valve is normal in structure and function. Doppler and Color Flow revealed trace aortic re gurgitation. There is no significant aortic valvular stenosis. MITRAL VALVE The mitral valve is normal in structure and function. There is no evidence of mitral valve prolapse. There is no mitral valve stenosis. Doppler and Color-flow revealed trace mitral regurgitation. TRICUSPID VALVE The tricuspid valve is normal in structure and function. Doppler and Color Flow revealed trace tricus pid regurgitation. There is no tricuspid valve stenosis. PULMONIC VALVE The pulmonary valve is normal in structure and function. Doppler and Color Flow revealed trace pulmon ic valvular regurgitation. GREAT VESSELS The aortic root is mildly enlarged measuring 4.0 cm The pulmonary artery is normal. The IVC is normal in size and collapses >50% with inspiration. PERICARDIAL EFFUSION There is no evidence of significant pericardial effusion. Critical Notification Critical Value: No <Conclusion> The left ventricular systolic function is normal. Estimated ejection fraction 55-60%. There is normal LV segmental wall motion. Trace mitral regurgitation. Trace tricuspid regurgitation. There is no evidence of significant pericardial effusion. Signed by : Hitesh Gaytan, Electronically Approved : 03/12/2020 16:43:23
--- NOTE | 2020-03-12 16:52 | PDOC3 ---
Discharge Summary Visit Information Date of Admission: Mar 09, 2020 Date of Discharge: Mar 12, 2020 Final Diagnosis Osteoarthritis right knee. Aftercare after total knee arthroplasty. Brief Hospital Course Allergies Allergies Coded Allergies Type Severity Reaction Last Updated Verified Sulfa (Sulfonamide Antibiotics) Allergy Severe RASH 03/09/20 Yes amoxicillin Allergy Severe PURITIS 03/09/20 Yes lisinopril Allergy Severe RASH 03/09/20 Yes Vital Signs Vital Signs Date Time Temp Pulse Resp B/P (MAP) Pulse Ox O2 Delivery O2 Flow Rate FiO2 03/12/20 15:37 Room Air 03/12/20 15:02 98.1 102 20 119/72 (88) 96 98.1 03/12/20 06:00 2.0 Lab Results Laboratory Tests Test 03/11/20 08:34 03/12/20 07:15 Hemoglobin 10.8 g/dL (13.0-17.5) 9.7 g/dL (13.0-17.5) Hematocrit 32.9 % (39.0-53.0) 29.7 % (39.0-53.0) Mean Corpuscular Hemoglobin Concent 33 g/dL (31-37) 33 g/dL (31-37) White Blood Count 9.7 x10^3/uL (4.0-11.0) Red Blood Count 3.08 x10^6/uL (4.30-5.70) Mean Corpuscular Volume 96 fL (79-100) Mean Corpuscular Hemoglobin 32 pg (25-35) Red Cell Distribution Width 13.8 % (11.5-14.5) Platelet Count 221 x10^3/uL (140-400) Sodium Level 135 mmol/L (136-145) Potassium Level 3.9 mmol/L (3.5-5.1) Chloride Level 101 mmol/L (98-107) Carbon Dioxide Level 28 mmol/L (21-32) Anion Gap 6 (6-14) Blood Urea Nitrogen 23 mg/dL (8-26) Creatinine 1.2 mg/dL (0.7-1.3) Estimated GFR (Cockcroft-Gault) 57.1 Glucose Level 94 mg/dL (70-99) Calcium Level 8.2 mg/dL (8.5-10.1) Magnesium Level 2.2 mg/dL (1.8-2.4) Triglycerides Level 52 mg/dL (0-150) Cholesterol Level 115 mg/dL (0-200) LDL Cholesterol, Calculated 47 mg/dL (0-100) VLDL Cholesterol, Calculated 10 mg/dL (0-40) Non-HDL Cholesterol Calculated 57 mg/dL (0-129) HDL Cholesterol 58 mg/dL (40-60) Cholesterol/HDL Ratio 2.0 Thyroid Stimulating Hormone (TSH) 1.280 uIU/mL (0.358-3.74) Laboratory Tests Test 03/12/20 07:15 White Blood Count 9.7 x10^3/uL (4.0-11.0) Red Blood Count 3.08 x10^6/uL (4.30-5.70) Hemoglobin 9.7 g/dL (13.0-17.5) Hematocrit 29.7 % (39.0-53.0) Mean Corpuscular Volume 96 fL (79-100) Mean Corpuscular Hemoglobin 32 pg (25-35) Mean Corpuscular Hemoglobin Concent 33 g/dL (31-37) Red Cell Distribution Width 13.8 % (11.5-14.5) Platelet Count 221 x10^3/uL (140-400) Sodium Level 135 mmol/L (136-145) Potassium Level 3.9 mmol/L (3.5-5.1) Chloride Level 101 mmol/L (98-107) Carbon Dioxide Level 28 mmol/L (21-32) Anion Gap 6 (6-14) Blood Urea Nitrogen 23 mg/dL (8-26) Creatinine 1.2 mg/dL (0.7-1.3) Estimated GFR (Cockcroft-Gault) 57.1 Glucose Level 94 mg/dL (70-99) Calcium Level 8.2 mg/dL (8.5-10.1) Magnesium Level 2.2 mg/dL (1.8-2.4) Triglycerides Level 52 mg/dL (0-150) Cholesterol Level 115 mg/dL (0-200) LDL Cholesterol, Calculated 47 mg/dL (0-100) VLDL Cholesterol, Calculated 10 mg/dL (0-40) Non-HDL Cholesterol Calculated 57 mg/dL (0-129) HDL Cholesterol 58 mg/dL (40-60) Cholesterol/HDL Ratio 2.0 Thyroid Stimulating Hormone (TSH) 1.280 uIU/mL (0.358-3.74) Brief Hospital Course 89 year old who presented with knee osteoarthritis, for elective total knee arthroplasty. The patient underwent total knee arthroplasty under general anesthesia the day of admission. Perioperative antibiotics and DVT prophylaxis were used. Postoperatively physical therapy and case management were consulted. On postoperative day 2 he developed emesis and tachycardia, and an EKG showed abnormalities. Cardiology was consulted. An echocardiogram was done which was unremarkable. His emesis symptoms and tachycardia resolved with IV fluids. He is felt stable for discharge. Discharge Information Condition at Discharge: Stable Follow Up: Weeks Disposition/Orders: D/C to Home w/ HH Scheduled Allopurinol (Allopurinol), 300 MG PO DAILY, (Reported) Hydrochlorothiazide (Hydrochlorothiazide Tablet), 25 MG PO DAILY, (Reported) Mecobalamin (B12 Active), 1,000 MCG PO DAILY, (Reported) Meloxicam (Meloxicam), 7.5 MG PO DAILY, (Reported) Metoprolol Succinate (Metoprolol Succinate ( Xl )), 100 MG PO DAILY, (Reported) Multivitamin/Iron/Folic Acid (Centrum Complete Multivit Tab), 1 EACH PO DAILY, (Reported) Simvastatin (Simvastatin), 80 MG PO HS, (Reported) Vit A/Vit C/Vit E/Zinc/Copper (Preservision Areds Softgel), 1 EACH PO DAILY, (Reported) Patient Instructions Patient Instructions Continue to weight bearing as tolerated with walker. Keep ANANDA dressing intact and dry. Follow-up with Dr. Medeiros's office next week. Continue enteric coated aspirin 325 mg by mouth twice a day for 30 days to prevent blood clots. Justicifation of Admission Dx: Justifications for Admission: Justification of Admission Dx: Yes Hypertension: Unstable Variant GENESIS MEDEIROS MD Mar 12, 2020 16:52
--- NOTE | 2020-03-12 16:53 | SNU/HH DC ---
DISCHARGE WITH HOME HEALTH DISCHARGE INFORMATION: Discharge Date: Mar 12, 2020 Final Diagnosis: Osteoarthritis right knee. Aftercare after total knee arthroplasty. Condition on Discharge: Stable CODE STATUS: Code Status: Full HOME HEALTH: Face to Face: I certify this patient is under my care and that I, or a nurse practitioner or physician's intellectual property legal assistant working with me, had a face to face encounter that meets the physician face to face encounter requirements with this patient on 03/12/2020 Medical Complications: S/P Joint Replacement RN For Eval/Treatment: No Physical Therapy For: Evalulation/Treatment Occupational Therapy For: Evaluation/Treatment Pt Meets Homebound Status: Limited distance walking POST DISCHARGE ORDERS: Activity Instructions for Disc: No restrictions, Progressive ambulation Weight Bearing Status after Di: As tolerated Bathing Instructions: Shower-keep dressing dry DIET AFTER DISCHARGE: Regular Wound/Incision Care: Ice to area for comfort, Keep wound/cast CDI, Do not change dressing TREATMENT/EQUIPMENT ORDERS: Adaptive Equipment Issued: Front wheeled walker CERTIFICATION STATEMENT: Certification Statement: Certification Statement: Based on the above finding, I certify that this patient is confined to the home and needs intermittent jail care, physical therapy and/or speech therapy, or continues to need occupational therapy.~ This patient is under my care, and I have initiated the establishment of the plan of care.~ This patient will be followed by myself or a community physician who will periodically review the plan of care. Home Meds Reported Medications Vit A/Vit C/Vit E/Zinc/Copper (PRESERVISION AREDS SOFTGEL) 1 Each Capsule, 1 EACH PO DAILY for supp, CAP 02/25/20 Meloxicam (MELOXICAM) 7.5 Mg Tablet, 7.5 MG PO DAILY for arthritis, TAB 02/25/20 Multivitamin/Iron/Folic Acid (CENTRUM COMPLETE MULTIVIT TAB) 1 Each Tablet, 1 EACH PO DAILY for supp, TAB 02/25/20 Mecobalamin (B12 Active) 1,000 Mcg Tab.chew, 1000 MCG PO DAILY for supp, TAB.CHEW 02/25/20 Hydrochlorothiazide (HYDROCHLOROTHIAZIDE TABLET) 12.5 Mg Tablet, 25 MG PO DAILY for DIURETIC, TAB 0 Refills 02/25/20 Allopurinol (ALLOPURINOL) 300 Mg Tablet, 300 MG PO DAILY for gout, TAB 02/25/20 Metoprolol Succinate (METOPROLOL SUCCINATE ( XL )) 100 Mg Tab.er.24h, 100 MG PO DAILY for FOR HYPERTENSION, #30 TAB 0 Refills 02/25/20 Simvastatin (SIMVASTATIN) 80 Mg Tablet, 80 MG PO HS for FOR CHOLESTEROL, #30 TAB 0 Refills 02/25/20 GENESIS CONTRERAS MD Mar 12, 2020 16:53
--- NOTE | 2020-03-12 17:40 | NUR ---
Discharge instructions given to pt and daughter. Answered questions and concerns. Verbalized understanding. Pt discharged home and will have home health. Escorted out by w/c.
[2020-03-12] MEDS ORDERED: ATORVASTATIN CALCIUM 40 MG TABLET. PO SCH (21:00)
== END 2020-03-12 17:40 | disposition home or self-care (01) | DRG 470 ==
LOC: SURG 06:09 → 4 SOUTHEST 09:55 → OBSVTOIN 03-11 13:08
PROVIDERS: ADMIT Orthopaedic Surgery; ATTEND Orthopaedic Surgery
PROC: 0SRC0J9 Replacement of Right Knee Joint with Synthetic Substitute, Cemented, Open Approach (ICD-10-PCS; principal; 2020-03-11)
PROC: 0SUT09Z Supplement Right Knee Joint, Femoral Surface with Liner, Open Approach (ICD-10-PCS; 2020-03-11)
PROC: 8E0Y0CZ Robotic Assisted Procedure of Lower Extremity, Open Approach (ICD-10-PCS; 2020-03-11)
DX: M17.11 Unilateral primary osteoarthritis, right knee (principal); I47.1 Supraventricular tachycardia; I95.9 Hypotension, unspecified; E78.5 Hyperlipidemia, unspecified; I10 Essential (primary) hypertension; M54.9 Dorsalgia, unspecified; Z96.652 Presence of left artificial knee joint; Z60.2 Problems related to living alone; R11.2 Nausea with vomiting, unspecified; H91.90 Unspecified hearing loss, unspecified ear; Z87.891 Personal history of nicotine dependence; M21.069 Valgus deformity, not elsewhere classified, unspecified knee; K59.00 Constipation, unspecified; Z98.49 Cataract extraction status, unspecified eye; D64.9 Anemia, unspecified; I49.9 Cardiac arrhythmia, unspecified; Z88.2 Allergy status to sulfonamides; Z88.1 Allergy status to other antibiotic agents; Z88.8 Allergy status to other drugs, medicaments and biological substances
CPT/HCPCS: 36415; 73560; 80048; 80061; 83735; 84443; 85014; 85018; 85027; 86850; 86900; 86901; 88305; 88311; 93005; 93306; C1713; G0378; G0379; J0171; J1040; J1100; J1885; J2270; J2370; J2405; J2704; J2765; J2795; J3010; J3260; J3370; J3490; J7030; 97110-GP; 97116-GP; 97530-GO; 97530-GP; 97535-GO; A4461; C1769